=== PATIENT | female | born 1990 | race Caucasian/White ===

== ENCOUNTER 2021-04-29 23:31 | Emergency (ER) | payer OTHER ==
[~2021-04-29] VITALS: Ht 165.1 cm; Wt 72.6 kg
--- NOTE | 2021-04-30 00:56 | NUR ---
MD Al in room to do MSE.
[2021-04-30] MEDS ORDERED: ONDANSETRON 4 MG/2 ML VIAL IM ONE (01:15)
[2021-04-30] MEDS ORDERED: HYDROMORPHONE 1 MG/1 ML DISP.SYRIN IM ONE (01:15)
[2021-04-30] MEDS ORDERED: LET TOPICAL SOLUTION 8 ML UDC TP ONE (01:15)
[2021-04-30] MEDS ORDERED: ONDANSETRON 4 MG/2 ML VIAL ONE (01:31)
[2021-04-30] MEDS ORDERED: LET TOPICAL SOLUTION 8 ML UDC ONE (01:31)
[2021-04-30] MEDS ORDERED: HYDROMORPHONE 1 MG/1 ML DISP.SYRIN ONE (01:32)
[2021-04-30] MEDS ORDERED: HYDR-3980 PO (02:58)
[2021-04-30] MEDS ORDERED: SULF1TAB48 PO (02:58)
[2021-04-30 03:07] VITALS: BP 129/77
--- NOTE | 2021-04-30 03:07 | NUR ---
Patient discharged to home in stable condition. Written and verbal after care instructions given. Patient verbalizes understanding of instructions. Stressed follow up or return to ER for worsening s/s.
== END 2021-04-30 03:08 | disposition home or self-care (01) ==
LOC: ER 23:37
DX: L05.01 Pilonidal cyst with abscess (principal)
CPT/HCPCS: 10080; 96372 ×2; 99284; J1170; J2405; J3490; A4663

== ENCOUNTER 2021-05-02 18:55 | Emergency (ER) | payer OTHER ==
[~2021-05-02] VITALS: Ht 185.4 cm; Wt 80.3 kg
[~2021-05-02 18:55] MED LIST: HYDR-3980 PO; SULF1TAB48 PO
--- NOTE | 2021-05-02 20:06 | NUR ---
Patient discharged to home in stable condition. Written and verbal after care instructions given. Patient verbalizes understanding of instructions. Stressed follow up or return to ER for worsening s/s. Ambulated from ER with stable gait. All belongings with patient.
[2021-05-02 20:08] VITALS: BP 112/69
== END 2021-05-02 20:08 | disposition home or self-care (01) ==
LOC: ER 18:57
DX: L05.01 Pilonidal cyst with abscess (principal)
CPT/HCPCS: A4217; A4663